=== PATIENT | female | born 1950 | race Caucasian/White ===

== ENCOUNTER → 2017-11-13 | Outpatient (REF) | payer MEDICARE, OTHER ==
[~2017-11-13] MED LIST: ASPIRIN 8181 MG PO; BONIVA150 MG PO; CALCIUM600 M2 PO; DIOVAN160 MG PO; FERROUS SULF325 M1 PO; KLOR-CON 1010 ME1 PO; KLOR-CON M1010 MEQ PO; LASIX 20 MG TAB20 MG PO; LEVOTHYROXIN100 MCG PO; LEVOTHYROXIN88 MC1 PO; LEVOTHYROXINE112 MCG PO; LOVASTATIN20 M1 PO; LOVASTATIN20 MG PO; PROBIOTI2 PO; SM IRON PO; TAMOXIFEN CITRA20 MG PO; THIORIDAZINE PO
[2017-11-13 14:03] LABS: TSH, 3RD GENERATION 0.87 uIU/mL (0.47 - 4.68)
== END | disposition home or self-care (01) ==
LOC: LAB 10:44
PROVIDERS: ATTEND Internal Medicine
DX: E03.9 Hypothyroidism, unspecified (principal)

== ENCOUNTER 2018-08-26 11:29 | Emergency (ER) | payer MEDICARE, OTHER ==
[~2018-08-26] VITALS: Ht 154.9 cm; Wt 75.0 kg
[2018-08-26 11:58] LABS: HEMATOCRIT 32.7 % (37.0-47.0); IMMATURE GRANULOCYTES 0.5 % (0.0-5.0); MEAN CELL VOLUME 87.7 fL CALC (80.0-100.0); MEAN CORPUSCULAR HGB 29.5 pG CALC (26.0-32.0); MEAN CORPUSCULAR HGB CONC 33.6 g/L CALC (32.0-36.0); NEUT# 3.87 thou/uL (2.00-7.15); RED BLOOD COUNT 3.73 mill/uL (4.20-5.60); RED CELL DISTRI WIDTH 13.2 % (11.5-15.5)
[2018-08-26 12:04] LABS: GFR > 60 ML/MIN (>=60 (CALC)); GFR FOR AFR.AMER. > 60 ML/MIN (>=60 (CALC))
[2018-08-26 12:13] LABS: ALBUMIN 4.3 g/dL (3.2-5.0); ALKALINE PHOSPHATASE 70 u/l (38-126); BUN 15 mg/dL (8-23); BUN/CREATININE RATIO 22 (12-20 (CALC)); CHLORIDE 104 mmol/l (95-108); CREATININE 0.7 mg/dL (0.5-1.0); GFR > 60 ML/MIN (>=60 (CALC)); GFR FOR AFR.AMER. > 60 ML/MIN (>=60 (CALC)); POTASSIUM 4.1 mmol/l (3.5-5.1); SODIUM 138 mmol/l (137-146); TOTAL PROTEIN 7.1 g/dL (6.3-8.2)
[2018-08-26 12:18] LABS: ANION GAP 15 (6-22 (CALC)); BILIRUBIN, TOTAL 0.6 mg/dL (0.0-1.4); CARBON DIOXIDE 23 mmol/l (22-30); SGOT/AST 35 u/l (9-36)
[2018-08-26] MEDS ORDERED: LOSARTAN POT50 MG PO (12:48)
[2018-08-26] MEDS ORDERED: LEVOTHYROXIN112 MC1 PO (12:49)
[2018-08-26] MEDS ORDERED: BACTRIM DS1 TAB PO (12:50)
[2018-08-26] MEDS ORDERED: FERRETTS325 MG PO (12:52)
[2018-08-26 12:58] LABS: URINE BILIRUBIN - DIPSTICK NEGATIVE (NEGATIVE); URINE BLOOD DIPSTICK NEGATIVE (NEGATIVE); URINE COLOR YELLOW; URINE GLUCOSE - DIPSTICK NEGATIVE (NEGATIVE); URINE KETONE TRACE mg/dL (NEGATIVE); URINE LEUK ESTERASE NEGATIVE (NEGATIVE); URINE NITRITE - DIPSTICK NEGATIVE (Negative); URINE PROTEIN - DIPSTICK TRACE mg/dL (NEG-TRACE); URINE UROBILINOGEN - DIPSTICK 0.2 E.U./dL (0.2)
[2018-08-26 14:41] VITALS: BP 113/57
== END 2018-08-26 14:41 | disposition short-term general hospital (02) ==
LOC: ED 11:29
PROVIDERS: Emergency Medicine
DX: G40.89 Other seizures (principal); Z98.890 Other specified postprocedural states; I10 Essential (primary) hypertension; Z86.011 Personal history of benign neoplasm of the brain
CPT/HCPCS: J2060; Q9967

== ENCOUNTER 2018-09-03 19:31 | Emergency (ER) | payer MEDICARE, OTHER ==
[~2018-09-03] VITALS: Ht 157.5 cm; Wt 64.5 kg
[~2018-09-03 19:31] MED LIST changes: +BACTRIM DS1 TAB PO; +FERRETTS325 MG PO; +LEVOTHYROXIN112 MC1 PO; +LOSARTAN POT50 MG PO
[2018-09-03] MEDS ORDERED: ALENDRONATE SOD70 MG PO (20:12)
[2018-09-03] MEDS ORDERED: LEVETIRACETAM500 MG PO (20:13)
[2018-09-03] MEDS ORDERED: HYDROXYZ HCL25 MG PO (20:15)
[2018-09-03] MEDS ORDERED: BENADRYL 50MG C50 MG PO (21:15)
[2018-09-03] MEDS ORDERED: MEDDOSEPAK PO (21:15)
[2018-09-03] MEDS ORDERED: PEPCID20 MG PO (21:15)
[2018-09-03] MEDS ORDERED: CIPROFLOXACN500 MG PO (21:19)
[2018-09-03 21:55] VITALS: BP 122/62
== END 2018-09-03 22:15 | disposition home or self-care (01) ==
LOC: ED 19:31
DX: L27.1 Localized skin eruption due to drugs and medicaments taken internally (principal); I10 Essential (primary) hypertension; T37.0X5A Adverse effect of sulfonamides, initial encounter

== ENCOUNTER 2018-11-24 12:52 | Inpatient (IN) | payer MEDICARE, OTHER ==
[~2018-11-24] VITALS: Ht 157.5 cm; Wt 56.0 kg
[~2018-11-24 12:52] MED LIST changes: +ALENDRONATE SOD70 MG PO; +BENADRYL 50MG C50 MG PO; +CIPROFLOXACN500 MG PO; +HYDROXYZ HCL25 MG PO; +LEVETIRACETAM500 MG PO; +MEDDOSEPAK PO; +PEPCID20 MG PO
[2018-11-24 13:46] LABS: HEMOGLOBIN 11.1 g/dl (12.0-16.0); IMMATURE GRANULOCYTES 0.2 % (0.0-5.0); MEAN CELL VOLUME 89.7 fL CALC (80.0-100.0); MEAN CORPUSCULAR HGB 29.3 pG CALC (26.0-32.0); MEAN CORPUSCULAR HGB CONC 32.6 g/L CALC (32.0-36.0); NEUT# 4.29 thou/uL (2.00-7.15); RED BLOOD COUNT 3.79 mill/uL (4.20-5.60); RED CELL DISTRI WIDTH 12.9 % (11.5-15.5)
[2018-11-24 14:01] LABS: ALBUMIN 4.9 g/dL (3.2-5.0); ALKALINE PHOSPHATASE 81 u/l (38-126); ANION GAP 14 (6-22 (CALC)); BILIRUBIN, TOTAL 0.6 mg/dL (0.0-1.4); BUN 17 mg/dL (8-23); BUN/CREATININE RATIO 23 (12-20 (CALC)); CHLORIDE 103 mmol/l (95-108); CREATININE 0.7 mg/dL (0.5-1.0); GFR > 60 ML/MIN (>=60 (CALC)); GFR FOR AFR.AMER. > 60 ML/MIN (>=60 (CALC)); POTASSIUM 3.9 mmol/l (3.5-5.1); SGOT/AST 25 u/l (9-36); SODIUM 141 mmol/l (137-146); TOTAL PROTEIN 7.5 g/dL (6.3-8.2)
[2018-11-24 14:04] LABS: CARBON DIOXIDE 28 mmol/l (22-30)
[2018-11-24 16:10] LABS: URINE BILIRUBIN - DIPSTICK NEGATIVE (NEGATIVE); URINE BLOOD DIPSTICK TRACE-INTACT (NEGATIVE); URINE COLOR YELLOW; URINE GLUCOSE - DIPSTICK NEGATIVE (NEGATIVE); URINE KETONE NEGATIVE (NEGATIVE); URINE PH 6.5 (4.5-8.0); URINE PROTEIN - DIPSTICK NEGATIVE (NEG-TRACE); URINE UROBILINOGEN - DIPSTICK 0.2 E.U./dL (0.2)
[2018-11-24 16:12] LABS: URINE LEUK ESTERASE LARGE (NEGATIVE); URINE NITRITE - DIPSTICK POSITIVE (Negative)
[2018-11-24 16:19] LABS: URINE BACTERIA FEW hpf; URINE SQUAMOUS EPITHELIAL CELL FEW EPI/hpf (0-FEW); URINE WBC 50-100 WBC/hpf (0-5)
[2018-11-24 16:46] LABS: BARBITURATES NEGATIVE (NEGATIVE); COCAINE NEGATIVE (NEGATIVE); METHADONE NEGATIVE (NEGATIVE); OXCYCODONE NEGATIVE (NEGATIVE); TETRAHYDROCANNABIONOL NEGATIVE (NEGATIVE); TRICYLIC ANTIDEPRESSANTS NEGATIVE (NEGATIVE)
[2018-11-24 20:41] VITALS: BP 139/66
[2018-11-24 23:35] VITALS: BP 121/62
[2018-11-25 04:30] VITALS: BP 86/48
[2018-11-25 04:51] VITALS: BP 108/63
[2018-11-25 07:00] VITALS: BP 106/51
[2018-11-25 12:00] VITALS: BP 119/69
[2018-11-25 16:00] VITALS: BP 123/56
[2018-11-25 19:46] VITALS: BP 119/57
[2018-11-26] VITALS (10 sets, daily range): BP systolic 104–137; BP diastolic 56–76
[2018-11-27] VITALS (11 sets, daily range): BP systolic 106–152; BP diastolic 49–81
[2018-11-27 05:23] LABS: HEMATOCRIT 29.4 % (37.0-47.0); HEMOGLOBIN 9.6 g/dl (12.0-16.0); MEAN CELL VOLUME 89.1 fL CALC (80.0-100.0); MEAN CORPUSCULAR HGB 29.1 pG CALC (26.0-32.0); MEAN CORPUSCULAR HGB CONC 32.7 g/L CALC (32.0-36.0); RED BLOOD COUNT 3.3 mill/uL (4.20-5.60)
[2018-11-27 05:39] LABS: ANION GAP 9 (6-22 (CALC)); BUN 12 mg/dL (8-23); BUN/CREATININE RATIO 19 (12-20 (CALC)); CARBON DIOXIDE 24 mmol/l (22-30); CHLORIDE 111 mmol/l (95-108); CREATININE 0.6 mg/dL (0.5-1.0); GFR > 60 ML/MIN (>=60 (CALC)); GFR FOR AFR.AMER. > 60 ML/MIN (>=60 (CALC)); POTASSIUM 4.1 mmol/l (3.5-5.1); SODIUM 140 mmol/l (137-146)
[2018-11-28] VITALS: BP 135/64
[2018-11-28 02:00] VITALS: BP 119/66
[2018-11-28 04:00] VITALS: BP 140/68
[2018-11-28 06:00] VITALS: BP 89/47
[2018-11-28 08:10] VITALS: BP 116/62
[2018-11-28] MEDS ORDERED: KEFLEX500 MG PO (11:01)
[2018-11-28 11:57] VITALS: BP 133/65
== END 2018-11-28 12:55 | DRG 885 ==
LOC: ED 12:52 → ED-I 16:24 → ED 16:39 → ICU 16:40
PROVIDERS: Family Medicine; ADMIT Internal Medicine; ATTEND Internal Medicine
DX: F20.0 Paranoid schizophrenia (principal); I10 Essential (primary) hypertension; E03.9 Hypothyroidism, unspecified; E11.9 Type 2 diabetes mellitus without complications; G40.909 Epilepsy, unspecified, not intractable, without status epilepticus; B96.20 Unspecified Escherichia coli [E. coli] as the cause of diseases classified elsewhere; Z86.011 Personal history of benign neoplasm of the brain
CPT/HCPCS: J1650; J1953; S0166

== ENCOUNTER 2019-06-06 | Emergency (ER) | payer MEDICARE, OTHER ==
[~2019-06-06] MED LIST changes: +KEFLEX500 MG PO
[2019-06-06] MEDS ORDERED: IRON45 MG PO (23:04)
[2019-06-06] MEDS ORDERED: LEXAPRO10 MG PO (23:05)
[2019-06-06] MEDS ORDERED: NAMENDA10 MG PO (23:05)
[2019-06-06] MEDS ORDERED: ZYPREXA ZYDI5 MG PO (23:06)
[2019-06-06 23:24] LABS: HEMATOCRIT 33.1 % (37.0-47.0); IMMATURE GRANULOCYTES 0.3 % (0.0-5.0); MEAN CELL VOLUME 90.7 fL CALC (80.0-100.0); MEAN CORPUSCULAR HGB 30.1 pG CALC (26.0-32.0); MEAN CORPUSCULAR HGB CONC 33.2 g/dL CAL (32.0-36.0); NEUT# 2.18 thou/uL (2.00-7.15); RED BLOOD COUNT 3.65 mill/uL (4.20-5.60); RED CELL DISTRI WIDTH 13.2 % (11.5-15.5)
[2019-06-06 23:39] LABS: ACT PARTIAL THROMBO TIME 26.9 SECONDS (20.0-32.5); ALBUMIN 4.3 g/dL (3.2-5.0); ALKALINE PHOSPHATASE 65 u/l (38-126); ANION GAP 9 (6-22 (CALC)); BUN 22 mg/dL (8-23); BUN/CREATININE RATIO 42 (12-20 (CALC)); CARBON DIOXIDE 34 mmol/l (22-30); CHLORIDE 105 mmol/l (95-108); CREATININE 0.5 mg/dL (0.5-1.0); GFR > 60 ML/MIN (>=60 (CALC)); GFR FOR AFR.AMER. > 60 ML/MIN (>=60 (CALC)); SODIUM 144 mmol/l (137-146); TOTAL PROTEIN 7.2 g/dL (6.3-8.2)
[2019-06-06 23:40] LABS: BILIRUBIN, TOTAL 0.2 mg/dL (0.0-1.4); SGOT/AST 47 u/l (9-36)
[2019-06-07 00:09] LABS: TSH, 3RD GENERATION 0.13 uIU/mL (0.47 - 4.68)
[2019-06-07 00:09] LABS: BARBITURATES NEGATIVE (NEGATIVE); COCAINE NEGATIVE (NEGATIVE); METHADONE NEGATIVE (NEGATIVE); OXCYCODONE NEGATIVE (NEGATIVE); TETRAHYDROCANNABIONOL NEGATIVE (NEGATIVE); TRICYLIC ANTIDEPRESSANTS NEGATIVE (NEGATIVE)
[2019-06-07 00:16] LABS: URINE BILIRUBIN - DIPSTICK NEGATIVE (NEGATIVE); URINE BLOOD DIPSTICK NEGATIVE (NEGATIVE); URINE COLOR YELLOW; URINE GLUCOSE - DIPSTICK NEGATIVE (NEGATIVE); URINE KETONE NEGATIVE (NEGATIVE); URINE LEUK ESTERASE NEGATIVE (NEGATIVE); URINE NITRITE - DIPSTICK NEGATIVE (Negative); URINE PROTEIN - DIPSTICK NEGATIVE (NEG-TRACE); URINE SPECIFIC GRAVITY >=1.030; URINE UROBILINOGEN - DIPSTICK 0.2 E.U./dL (0.2)
== END 2019-06-07 00:52 | disposition home or self-care (01) ==
PROVIDERS: Family Medicine
DX: R47.1 Dysarthria and anarthria (principal); E03.9 Hypothyroidism, unspecified; G40.909 Epilepsy, unspecified, not intractable, without status epilepticus; I10 Essential (primary) hypertension; E11.9 Type 2 diabetes mellitus without complications; F03.90 Unspecified dementia, unspecified severity, without behavioral disturbance, psychotic disturbance, mood disturbance, and anxiety; F31.9 Bipolar disorder, unspecified

== ENCOUNTER 2019-06-10 | Emergency (ER) | payer MEDICARE, OTHER ==
[~2019-06-10] MED LIST changes: +IRON45 MG PO; +LEXAPRO10 MG PO; +NAMENDA10 MG PO; +ZYPREXA ZYDI5 MG PO
[2019-06-10] MEDS ORDERED: PSYLLIUM FIBE0.52 GM PO (21:03)
[2019-06-10 21:19] LABS: HEMOGLOBIN 10.1 g/dl (12.0-16.0); IMMATURE GRANULOCYTES 0.7 % (0.0-5.0); MEAN CELL VOLUME 90.9 fL CALC (80.0-100.0); MEAN CORPUSCULAR HGB 29.6 pG CALC (26.0-32.0); MEAN CORPUSCULAR HGB CONC 32.6 g/dL CAL (32.0-36.0); NEUT# 2.17 thou/uL (2.00-7.15); RED BLOOD COUNT 3.41 mill/uL (4.20-5.60); RED CELL DISTRI WIDTH 13.5 % (11.5-15.5)
[2019-06-10 21:36] LABS: ALKALINE PHOSPHATASE 63 u/l (38-126); ANION GAP 8 (6-22 (CALC)); BUN 23 mg/dL (8-23); BUN/CREATININE RATIO 40 (12-20 (CALC)); CARBON DIOXIDE 35 mmol/l (22-30); CHLORIDE 104 mmol/l (95-108); CREATININE 0.6 mg/dL (0.5-1.0); GFR > 60 ML/MIN (>=60 (CALC)); GFR FOR AFR.AMER. > 60 ML/MIN (>=60 (CALC)); POTASSIUM 4.2 mmol/l (3.5-5.1); SGOT/AST 50 u/l (9-36); SODIUM 143 mmol/l (137-146); TOTAL PROTEIN 6.8 g/dL (6.3-8.2)
[2019-06-10 21:41] LABS: BILIRUBIN, TOTAL 0.3 mg/dL (0.0-1.4)
[2019-06-10 21:48] LABS: MYOGLOBIN 75 ng/mL (0 - 62)
[2019-06-10 22:17] LABS: URINE BILIRUBIN - DIPSTICK NEGATIVE (NEGATIVE); URINE BLOOD DIPSTICK NEGATIVE (NEGATIVE); URINE COLOR YELLOW; URINE GLUCOSE - DIPSTICK NEGATIVE (NEGATIVE); URINE KETONE NEGATIVE (NEGATIVE); URINE LEUK ESTERASE TRACE (NEGATIVE); URINE NITRITE - DIPSTICK NEGATIVE (Negative); URINE PH 5.5 (4.5-8.0); URINE PROTEIN - DIPSTICK TRACE mg/dL (NEG-TRACE); URINE SPECIFIC GRAVITY >=1.030; URINE UROBILINOGEN - DIPSTICK 0.2 E.U./dL (0.2)
== END 2019-06-10 22:55 | disposition home or self-care (01) ==
PROVIDERS: Emergency Medicine
DX: G40.409 Other generalized epilepsy and epileptic syndromes, not intractable, without status epilepticus (principal); E11.9 Type 2 diabetes mellitus without complications; I10 Essential (primary) hypertension; F31.9 Bipolar disorder, unspecified; F03.90 Unspecified dementia, unspecified severity, without behavioral disturbance, psychotic disturbance, mood disturbance, and anxiety; Z87.898 Personal history of other specified conditions

== ENCOUNTER 2020-06-15 12:00 | Inpatient (IN) | payer MEDICARE, OTHER ==
[~2020-06-15] VITALS: Ht 154.9 cm; Wt 83.8 kg
[~2020-06-15 12:00] MED LIST changes: +PSYLLIUM FIBE0.52 GM PO
--- NOTE | 2020-06-15 12:10 | NUR ---
PT TO ROOM VIA WHEELCHAIR. BEDSIDE TRIAGE COMPLETED
--- NOTE | 2020-06-15 12:57 | NUR ---
SISTER REMAINS BEDSIDE
[2020-06-15 13:31] LABS: HEMOGLOBIN 12.5 g/dl (12.0-16.0); IMMATURE GRANULOCYTES 0.5 % (0.0-5.0); MEAN CELL VOLUME 87.1 fL CALC (80.0-100.0); MEAN CORPUSCULAR HGB 29.4 pG CALC (26.0-32.0); MEAN CORPUSCULAR HGB CONC 33.8 g/dL CAL (32.0-36.0); NEUT# 6.59 thou/uL (2.00-7.15); RED BLOOD COUNT 4.25 mill/uL (4.20-5.60); RED CELL DISTRI WIDTH 12.3 % (11.5-15.5)
[2020-06-15 13:54] LABS: ALBUMIN 4.9 g/dL (3.2-5.0); BILIRUBIN, TOTAL 0.8 mg/dL (0.0-1.4); CREATININE 1.3 mg/dL (0.5-1.0); TOTAL PROTEIN 8.4 g/dL (6.3-8.2)
[2020-06-15 13:57] LABS: ACT PARTIAL THROMBO TIME 19.8 SECONDS (20.0-32.5); PROTHROMBIN TIME 10.1 SECONDS (9.0-12.5)
[2020-06-15 14:01] LABS: POTASSIUM 1.9 mmol/l (3.5-5.1)
--- NOTE | 2020-06-15 14:34 | NUR ---
PATEINT RESTING EYES CLOSED, REMAINS BEDSIDE
[2020-06-15] MEDS ORDERED: LASIX 40 MG TAB40 MG PO (14:51)
[2020-06-15] MEDS ORDERED: DEPAKOTE SPR125 MG PO (14:55)
[2020-06-15] MEDS ORDERED: VIMPAT100 MG PO (15:38)
[2020-06-15] MEDS ORDERED: LEVOTHYROXIN100 MCG PO (15:39)
[2020-06-15] MEDS ORDERED: HYDROCHLOROT25 MG PO (15:44)
[2020-06-15] MEDS ORDERED: ATORVASTATIN CA20 MG PO (15:44)
[2020-06-15] MEDS ORDERED: LOVASTATIN20 M1 PO (15:45)
[2020-06-15] MEDS ORDERED: POTASSIUM CHLORI10 % PO (15:45)
--- NOTE | 2020-06-15 16:00 | NUR ---
RETURN PHONE CALL TO ESTEVAN HUYNH FOR PATIENT REPORT, REPORT GIVEN PATIENT HELD IN ED DUE TO CODE IN PROGRESS AND NEED FOR SIGNED ADMISSION
--- NOTE | 2020-06-15 16:20 | NUR ---
PATIENT BELONGING SHEET COMPLETED/MEDICATIONS FROM PHARMACY BROUGHT TO ICU WITH PATIENT
--- NOTE | 2020-06-15 16:30 | NUR ---
PT RESTING QUIETLY ON BED, SLIGHTLY MENTALLY CHALLANGED DUE TO BRAIN SURGERY AND DEMENTIA. PT LIVES IN [place], DENIES ANY COMPLAINTS WENT IN FOR ROUTINE BLOOD WORK AND WAS CALLED TO COME IN FOR LOW POTASSIUM. PT WAS RECENTLY PUT ON LASIX FOR UNKNOWN REASON. ALERT/ORIENTED TO SELF AND PLACE BUT NOT TIME. SISTER STATES THIS IS NORMAL.
[2020-06-15 16:53] VITALS: BP 169/78
--- NOTE | 2020-06-15 18:14 | NUR ---
PT RESTING QUIETLY ON BED, WATCHING TV. NO COMPLAINTS AT THIS TIME
[2020-06-15 18:35] LABS: CREATININE 1.1 mg/dL (0.5-1.0)
[2020-06-15 18:45] LABS: POTASSIUM 1.9 mmol/l (3.5-5.1)
[2020-06-15 19:00] VITALS: BP 127/71
--- NOTE | 2020-06-15 19:30 | NUR ---
REPORT GIVEN BY CRISTIANO. PATIENT RESTING IN BED WITH TV ON. RESP EVEN AND UNLABORED. NO S/S OF DISTRESS NOTED. FALL AND SAFTEY PRECAUTIONS IN PLACE. IV INFUSING POTASSUIM IN NS. PATIENT INFROEMD TO CALL WITH ANY QUESTIONS OR CONCERNS.
--- NOTE | 2020-06-15 19:58 | NUR ---
UPDATED ON PATIENT'S LABWORK, K 1.9. NEW ORDERS GIVEN FOR PO K AND IV K. NEW ORDERS GIVEN FOR MAG TO BE DRAWN FOR LABWORK.
[2020-06-15 20:00] VITALS: BP 132/65
--- NOTE | 2020-06-15 20:22 | NUR ---
FRESH WATER PROVIDED, ORANGE JUICE PROVIDED PER PT'S REQUEST, PT DENIES FURTHER NEEDS AT THIS TIME.
[2020-06-15 21:00] VITALS: BP 123/73
[2020-06-15 22:00] VITALS: BP 132/78
--- NOTE | 2020-06-15 22:00 | NUR ---
PATIENT RESTING IN BED WITH EYES CLOSED. RESP EVEN AND UNLABORED. NO S/S OF DISTRESS NOTED. FALL AND SAFTEY PRECAUTIONS IN PLACE.
[2020-06-15 23:00] VITALS: BP 91/60; BP 98/67
[2020-06-16] VITALS (16 sets, daily range): BP systolic 77–124; BP diastolic 45–72
--- NOTE | 2020-06-16 | NUR ---
PATIENT RESTING IN BED WITH EYES CLOSED. RESP EVEN AND UNLABORED. NO S/S OF DISTRESS NOTED.
--- NOTE | 2020-06-16 04:09 | NUR ---
LABTECH IN ROOM DRAWING MORNING LAB WORK
[2020-06-16 06:07] LABS: HEMOGLOBIN 11.1 g/dl (12.0-16.0); MEAN CELL VOLUME 88.8 fL CALC (80.0-100.0); MEAN CORPUSCULAR HGB CONC 32.6 g/dL CAL (32.0-36.0); RED BLOOD COUNT 3.83 mill/uL (4.20-5.60); RED CELL DISTRI WIDTH 12.4 % (11.5-15.5)
[2020-06-16 06:22] LABS: BUN 42 mg/dL (8-23); BUN/CREATININE RATIO 43 (12-20 (CALC)); CALCULATED LDLCHOLESTEROL 66 mg/dL (62-129 (CALC)); CHOLESTEROL HDL RATIO 2.2 (<4.4 (CALC)); GFR 55 ML/MIN (>=60 (CALC)); GFR FOR AFR.AMER. > 60 ML/MIN (>=60 (CALC)); HDL CHOLESTEROL 66 mg/dL (>=40); MAGNESIUM 2.5 mg/dL (1.6-2.3); SODIUM 134 mmol/l (137-146); TOTAL CHOLESTEROL 148 mg/dl (0-199); TOTAL TRIGLYCERIDES 81 mg/dl (30-149); VLDL CHOLESTROL 16 mg/dl (1-41 (CALC))
[2020-06-16 06:30] LABS: ANION GAP 11 (6-22 (CALC)); CHLORIDE 85 mmol/l (95-108); POTASSIUM 2.4 mmol/l (3.5-5.1)
[2020-06-16 06:31] LABS: CARBON DIOXIDE 40 mmol/l (22-30)
--- NOTE | 2020-06-16 06:37 | NUR ---
NEW ORDERS GIVEN BY FOR LOW K. KCL 80MEQ PO X 1 DOSE AND KCL 20 MEQ/100 ML IV X 1 DOSE.
--- NOTE | 2020-06-16 07:24 | NUR ---
PT REPORT RECEIVED FROM ACID EXTRACTOR, PT RESTING QUIETLY ON BED, NO COMPLAINTS AT THIS TIME, IV FLUIDS INFUSING. PT ALERT/ORIENTED X2. VITAL SIGNS STABLE.
--- NOTE | 2020-06-16 09:48 | NUR ---
PT SITTING UP IN BED WATCHING TV, NO COMPLAINTS AT THIS TIME. ADVISED OF PLAN OF CARE.
--- NOTE | 2020-06-16 11:44 | NUR ---
PT THERAPIST AT BEDSIDE. PT SAT UP AND WALKED IN ROOM
--- NOTE | 2020-06-16 15:42 | NUR ---
PT RESTING QUIETLY ON BED WATCHING TV, REMAINS PAIN FREE, COMPLAINT FREE, VITAL SIGNS STABLE
--- NOTE | 2020-06-16 17:45 | NUR ---
PT RESTING QUIETLY, DENIES ANY COMPLAINTS, WATCHING TV, VITAL SIGNS STABLE.
--- NOTE | 2020-06-16 19:10 | NUR ---
REPORT GIVEN BY CRISTIANO. PATIENT INBED WATCHING TV. RESP EVEN AND UNLABORED. IV INFUFING FLUIDS. NO S/S OF DISTRESS NOTED. PLAN OF CARE DISCUSSED. PATIENT INFORMED TO CALL WITH ANY QUESTIONS OR CONCERNS
--- NOTE | 2020-06-16 20:45 | NUR ---
PM MEDICATION GIVEN PER MD ORDERS. FALL AND SAFTEY PRECAUTIONS IN PLACE.
[2020-06-17] VITALS (9 sets, daily range): BP systolic 74–133; BP diastolic 40–59
--- NOTE | 2020-06-17 01:02 | NUR ---
PATIENT RESTING WITH EYES CLOSED. RESP EVEN AND UNLABORED. NO S/S OF DISTRESS NOTED. FALL AND SAFTEY PRECAUTIONS IN PLACE.
[2020-06-17 05:56] LABS: BUN 27 mg/dL (8-23); BUN/CREATININE RATIO 38 (12-20 (CALC)); CREATININE 0.7 mg/dL (0.5-1.0); GFR > 60 ML/MIN (>=60 (CALC)); GFR FOR AFR.AMER. > 60 ML/MIN (>=60 (CALC)); MAGNESIUM 2.3 mg/dL (1.6-2.3); SODIUM 138 mmol/l (137-146)
[2020-06-17 05:57] LABS: ANION GAP 10 (6-22 (CALC)); CARBON DIOXIDE 31 mmol/l (22-30); CHLORIDE 101 mmol/l (95-108); POTASSIUM 3.5 mmol/l (3.5-5.1)
--- NOTE | 2020-06-17 06:00 | NUR ---
PATIENT RESTING IN BED WITH EYES CLOSED. RESP EVEN AND UNLABORED. NO S/S OF DISTRESS NOTED.
--- NOTE | 2020-06-17 07:20 | NUR ---
pt resting in bed with eyes closed; easily aroused; pt offers no complaints; assessment completed at this time; pt alert and oriented to person, place and year; denies pain; no n/v noted; resp even and unlabored; lungs clear; skin color wnl; ra; hr reg; strong pulses; no edema noted; sr on monitor; abd soft/ distended with bs present; no bm noted per comic writer; no urine to inspect at this time; #20 patent to lac with ivf infusing without complication; no redness or edema noted at site; plan of care/ am meds explained; call light within reach; will continue to monitor
--- NOTE | 2020-06-17 08:00 | NUR ---
awake in bed; no apparent distress noted; sr on monitor; call light within reach; will continue to monitor
--- NOTE | 2020-06-17 08:50 | NUR ---
LARGE BM NOTED. PT ASSITED TO TOM CARE AND WASHING UP. NEW LINEN PROVIDED. #22G IN RAC STARTED. #20G IN LAC LEAKING, REMOVED WITH CATHATERS TILL INTACT. PT TOLERATED WELL.
--- NOTE | 2020-06-17 09:00 | NUR ---
Dr Parker present at bedside to assess pt and discuss plan of care
--- NOTE | 2020-06-17 10:00 | NUR ---
awake in bed; sr on monitor; no apparent distress noted; iv saline locked; call light within reach; bed alarm set for pt safety; call light within reach
--- NOTE | 2020-06-17 10:21 | NUR ---
report called to Shira Jaramillo LPN; pt to transfer to med surg tele [id number]
--- NOTE | 2020-06-17 10:35 | NUR ---
sister Agustina Barrera called per database report writer; database report writer request for Vimpat to be brought in d/t non formulary medication;
--- NOTE | 2020-06-17 10:36 | NUR ---
pt transferred to med surg tele [phone] in stable condition via wc accompanied by Leeann Sow LPN; belongings sent with pt
--- NOTE | 2020-06-17 10:49 | NUR ---
PT ARRIVED VIA WC WITH STAFF, IV AND TELE MONITOR IN PLACE.
--- NOTE | 2020-06-17 12:05 | NUR ---
PT IS SITTING IN BED WITH NO DISTRESS NOTED. EATING LUNCH. CONTINUE TO OBSERVE AND MONITOR.
--- NOTE | 2020-06-17 14:20 | NUR ---
FAMILY BROUGHT IN HER MEDICATION
--- NOTE | 2020-06-17 19:25 | NUR ---
AWNING MAKER AND INSTALLER IN WITH PT WHEN I ENTERED THE ROOM. HE WAS ASSISTING THE PT TO BS. SHE IS STEADY ON HER FEET WITH STANDBY ASSISTANCE. PT WAS ASSISTED BACK TO THE BED WHERE SHE WAS POSITIONED FOR COMFORT AND ASSISTED FINDING TV CHANNEL. PT ASSESSMENT ALSO COMPLETED AT THIS TIME. PT DENIES PAIN/N/V OR ANY OTHER DISTRESSES AT THIS TIME. CALL LIGHT IN HAND AND PT VERBALIZED AND DEMONSTRATED IT'S USAGE FOR ASSISTANCE WHEN NEEDED.
--- NOTE | 2020-06-17 21:27 | NUR ---
PT MEDICATED ORDERS PROVIDE. NO S/O DISTRESS NOTED AT THIS TIME. BED WRAPPED AT THIS TIME FOR SEIZURE PRECAUTION/HISTORY. OFFERED SNACK TO PT/ICECREAM PROVIDED PER REQUEST.
[2020-06-18] VITALS: BP 90/57
--- NOTE | 2020-06-18 00:03 | NUR ---
IVF REPLENISHED AT THIS TIME. PT IS SLEEPING, PHYTOPATHOLOGIST IN TO OBTAIN V/S ALSO AT THIS TIME. NO S/O DISTRESS.
[2020-06-18 00:30] VITALS: BP 96/56
[2020-06-18 03:40] VITALS: BP 92/55
--- NOTE | 2020-06-18 04:24 | NUR ---
PT AWAKE FOR LAB IN THE ROOM. SHE DENIES ANY NEEDS OR DISTRESSES AT THIS TIME. CALL LIGHT IS AT BEDSIDE. IVF RUNNING TO [facility]/SITE APPEARS HEALTHY.
[2020-06-18 04:53] LABS: HEMATOCRIT 30.7 % (37.0-47.0); HEMOGLOBIN 9.8 g/dl (12.0-16.0); MEAN CELL VOLUME 91.9 fL CALC (80.0-100.0); MEAN CORPUSCULAR HGB 29.3 pG CALC (26.0-32.0); MEAN CORPUSCULAR HGB CONC 31.9 g/dL CAL (32.0-36.0); RED BLOOD COUNT 3.34 mill/uL (4.20-5.60)
[2020-06-18 05:17] LABS: ANION GAP 6 (6-22 (CALC)); BUN 22 mg/dL (8-23); BUN/CREATININE RATIO 28 (12-20 (CALC)); CARBON DIOXIDE 31 mmol/l (22-30); CHLORIDE 105 mmol/l (95-108); CREATININE 0.8 mg/dL (0.5-1.0); GFR > 60 ML/MIN (>=60 (CALC)); GFR FOR AFR.AMER. > 60 ML/MIN (>=60 (CALC)); MAGNESIUM 2.3 mg/dL (1.6-2.3); POTASSIUM 3.5 mmol/l (3.5-5.1); SODIUM 140 mmol/l (137-146)
--- NOTE | 2020-06-18 06:36 | NUR ---
ASSISTED PT TO BSC AND BACK TO BED.
[2020-06-18 07:10] VITALS: BP 100/63
--- NOTE | 2020-06-18 07:10 | NUR ---
PT LAYING IN BED. A&O X3, ABLE TO STATE CORRECT NAME;;LOCATION AND YEAR. PT DENIES ANY PAIN AT THIS TIME. PT ABLE TO FOLLOW SIMPLE COMMANDS WITH NO DIFFICULTY. CLEAR BREATH SOUNDS UPON AUSCULTATION. #22 RAC INFUSING NS WITH 20 MEQ OF K PER MAR ORDERS, IV HEALTHY AND PATENT. TRACE EDEMA NOTED TO BILATERAL ANKLES. SINGLE STROKE PREFORMER IN PLACE. ASSESSMENT COMPLETED, VSS;. DISCUSSED POC. CALL LIGHT WITHIN REACH. BED ALARM IN PLACE FOR SAFETY.
[2020-06-18 10:08] VITALS: BP 113/66
--- NOTE | 2020-06-18 12:12 | NUR ---
Discharge instructions given. Patient verbalizes understanding of same; D/C instructions also given to Sister Agustina; she also veralized understanding. Discharged in stable condition via Wheelchair to [facility] with the assistance of this card writer hand. All belongings sent with pt along with home medications including Vimpat that was stocked in [facility]; witnessed by Josue Headley.
== END 2020-06-18 12:22 | disposition home or self-care (01) | DRG 641 ==
LOC: ED 12:00 → ED-I 14:25 → ED 16:17 → ICU 16:18 → MS2 06-17 10:39
PROVIDERS: Nurse Practitioner; ADMIT Internal Medicine; ATTEND Internal Medicine
DX: E87.6 Hypokalemia (principal); T50.2X5A Adverse effect of carbonic-anhydrase inhibitors, benzothiadiazides and other diuretics, initial encounter; I10 Essential (primary) hypertension; E11.9 Type 2 diabetes mellitus without complications; F03.90 Unspecified dementia, unspecified severity, without behavioral disturbance, psychotic disturbance, mood disturbance, and anxiety; E03.9 Hypothyroidism, unspecified; E78.5 Hyperlipidemia, unspecified; G40.909 Epilepsy, unspecified, not intractable, without status epilepticus; F20.9 Schizophrenia, unspecified; F31.9 Bipolar disorder, unspecified; Z20.822 Contact with and (suspected) exposure to COVID-19; R60.0 Localized edema; Z79.899 Other long term (current) drug therapy; E78.00 Pure hypercholesterolemia, unspecified; D50.9 Iron deficiency anemia, unspecified
CPT/HCPCS: J1650

== ENCOUNTER 2020-12-02 16:36 | Emergency (ER) | payer MEDICARE, OTHER ==
[~2020-12-02] VITALS: Ht 154.9 cm; Wt 80.0 kg
[~2020-12-02 16:36] MED LIST changes: +ATORVASTATIN CA20 MG PO; +DEPAKOTE SPR125 MG PO; +HYDROCHLOROT25 MG PO; +LASIX 40 MG TAB40 MG PO; +POTASSIUM CHLORI10 % PO; +VIMPAT100 MG PO
[2020-12-02] MEDS ORDERED: ALENDRONATE SOD70 MG PO (18:24)
[2020-12-02] MEDS ORDERED: DIVALPROEX125 M1 PO (18:25)
[2020-12-02] MEDS ORDERED: LASIX 40 MG TAB40 MG PO (18:26)
[2020-12-02 19:25] VITALS: BP 110/56
== END 2020-12-02 19:25 | disposition home or self-care (01) ==
LOC: ED 16:36
PROC: 0HQKXZZ Repair Right Lower Leg Skin, External Approach (ICD-10-PCS; principal; 2020-12-02)
DX: S81.011A Laceration without foreign body, right knee, initial encounter (principal); I10 Essential (primary) hypertension; F31.9 Bipolar disorder, unspecified; F03.90 Unspecified dementia, unspecified severity, without behavioral disturbance, psychotic disturbance, mood disturbance, and anxiety; W01.0XXA Fall on same level from slipping, tripping and stumbling without subsequent striking against object, initial encounter; Y92.098 Other place in other non-institutional residence as the place of occurrence of the external cause

== ENCOUNTER 2020-12-30 19:14 | Emergency (ER) | payer MEDICARE, OTHER ==
[~2020-12-30] VITALS: Ht 154.9 cm; Wt 85.0 kg
[~2020-12-30 19:14] MED LIST changes: +DIVALPROEX125 M1 PO
[2020-12-30 21:21] VITALS: BP 120/73
== END 2020-12-30 21:25 | disposition home or self-care (01) ==
LOC: ED 19:14
PROC: 0HQ1XZZ Repair Face Skin, External Approach (ICD-10-PCS; principal; 2020-12-30)
DX: S01.111A Laceration without foreign body of right eyelid and periocular area, initial encounter (principal); I10 Essential (primary) hypertension; F31.9 Bipolar disorder, unspecified; F03.90 Unspecified dementia, unspecified severity, without behavioral disturbance, psychotic disturbance, mood disturbance, and anxiety; W18.30XA Fall on same level, unspecified, initial encounter; Y93.89 Activity, other specified; Y92.009 Unspecified place in unspecified non-institutional (private) residence as the place of occurrence of the external cause

== ENCOUNTER 2021-03-16 14:58 | Emergency (ER) | payer MEDICARE, OTHER ==
[~2021-03-16] VITALS: Ht 154.9 cm; Wt 85.0 kg
[2021-03-16 17:26] LABS: HEMATOCRIT 35.5 % (37.0-47.0); HEMOGLOBIN 11.3 g/dl (12.0-16.0); IMMATURE GRANULOCYTES 0.3 % (0.0-5.0); MEAN CELL VOLUME 96.5 fL CALC (80.0-100.0); MEAN CORPUSCULAR HGB 30.7 pG CALC (26.0-32.0); MEAN CORPUSCULAR HGB CONC 31.8 g/dL CAL (32.0-36.0); NEUT# 3.68 thou/uL (2.00-7.15); RED BLOOD COUNT 3.68 mill/uL (4.20-5.60); RED CELL DISTRI WIDTH 12.2 % (11.5-15.5)
[2021-03-16 17:42] LABS: ALBUMIN 4.2 g/dL (3.2-5.0); BILIRUBIN, TOTAL 0.3 mg/dL (0.0-1.4); CREATININE 1.1 mg/dL (0.5-1.0); POTASSIUM 3.9 mmol/l (3.5-5.1); TOTAL PROTEIN 7.1 g/dL (6.3-8.2)
[2021-03-16] MEDS ORDERED: BACTRIM DS1 TAB PO (20:04)
[2021-03-16 20:20] VITALS: BP 130/63
== END 2021-03-16 20:26 | disposition home or self-care (01) ==
LOC: ED 14:58
PROVIDERS: Family Medicine
PROC: 0HDRXZZ Extraction of Toe Nail, External Approach (ICD-10-PCS; principal; 2021-03-16)
DX: S91.205A Unspecified open wound of left lesser toe(s) with damage to nail, initial encounter (principal); S00.83XA Contusion of other part of head, initial encounter; I10 Essential (primary) hypertension; F31.9 Bipolar disorder, unspecified; F03.90 Unspecified dementia, unspecified severity, without behavioral disturbance, psychotic disturbance, mood disturbance, and anxiety; W01.0XXA Fall on same level from slipping, tripping and stumbling without subsequent striking against object, initial encounter; Y92.531 Health care provider office as the place of occurrence of the external cause

== ENCOUNTER 2021-07-26 16:05 | Emergency (ER) | payer MEDICARE, OTHER ==
[2021-07-26] VITALS (15 sets, daily range): BP systolic 78–127; BP diastolic 40–74
[~2021-07-26] VITALS: Ht 154.9 cm; Wt 90.0 kg
[2021-07-26 17:03] LABS: HEMOGLOBIN 11.2 g/dl (12.0-16.0); IMMATURE GRANULOCYTES 0.2 % (0.0-5.0); MEAN CELL VOLUME 93.6 fL CALC (80.0-100.0); MEAN CORPUSCULAR HGB 29.9 pG CALC (26.0-32.0); NEUT# 2.22 thou/uL (2.00-7.15); RED BLOOD COUNT 3.74 mill/uL (4.20-5.60); RED CELL DISTRI WIDTH 12.7 % (11.5-15.5)
[2021-07-26 17:20] LABS: BILIRUBIN, TOTAL 0.3 mg/dL (0.0-1.4); CREATININE 1.3 mg/dL (0.5-1.0); POTASSIUM 3.8 mmol/l (3.5-5.1); TOTAL PROTEIN 6.9 g/dL (6.3-8.2)
[2021-07-26 18:43] LABS: URINE BILIRUBIN - DIPSTICK NEGATIVE (NEGATIVE); URINE BLOOD DIPSTICK TRACE-INTACT (NEGATIVE); URINE COLOR YELLOW; URINE GLUCOSE - DIPSTICK NEGATIVE (NEGATIVE); URINE KETONE NEGATIVE (NEGATIVE); URINE LEUK ESTERASE NEGATIVE (NEGATIVE); URINE PROTEIN - DIPSTICK NEGATIVE (NEG-TRACE); URINE UROBILINOGEN - DIPSTICK 0.2 E.U./dL (0.2)
[2021-07-26 18:44] LABS: URINE NITRITE - DIPSTICK NEGATIVE (Negative)
== END 2021-07-26 21:15 | disposition home or self-care (01) ==
LOC: ED 16:05
PROVIDERS: Nurse Practitioner
DX: S80.211A Abrasion, right knee, initial encounter (principal); W18.30XA Fall on same level, unspecified, initial encounter; Y92.099 Unspecified place in other non-institutional residence as the place of occurrence of the external cause; M25.561 Pain in right knee; S09.90XA Unspecified injury of head, initial encounter; E86.0 Dehydration; Z87.440 Personal history of urinary (tract) infections

== ENCOUNTER 2021-11-30 12:50 | Emergency (ER) | payer MEDICARE, OTHER ==
[~2021-11-30] VITALS: Ht 154.9 cm; Wt 100.0 kg
[2021-11-30 14:03] LABS: HEMATOCRIT 33.6 % (37.0-47.0); HEMOGLOBIN 10.7 g/dl (12.0-16.0); IMMATURE GRANULOCYTES 0.3 % (0.0-5.0); MEAN CELL VOLUME 94.1 fL CALC (80.0-100.0); MEAN CORPUSCULAR HGB CONC 31.8 g/dL CAL (32.0-36.0); NEUT# 2.18 thou/uL (2.00-7.15); RED BLOOD COUNT 3.57 mill/uL (4.20-5.60); RED CELL DISTRI WIDTH 12.2 % (11.5-15.5)
[2021-11-30] MEDS ORDERED: ESCITALOPRAM OX10 MG PO (14:10)
[2021-11-30] MEDS ORDERED: FEROSUL325 MG PO (14:10)
[2021-11-30] MEDS ORDERED: MEMANTINE HYDROC5 MG PO (14:12)
[2021-11-30] MEDS ORDERED: ROWEEPRA500 MG PO (14:12)
[2021-11-30] MEDS ORDERED: CARVEDILOL3.125 MG PO (14:13)
[2021-11-30] MEDS ORDERED: LIPITOR20 M1 PO (14:14)
[2021-11-30 14:38] LABS: ALBUMIN 4.1 g/dL (3.2-5.0); ALKALINE PHOSPHATASE 54 u/l (38-126); ANION GAP 14 (6-22 (CALC)); BILIRUBIN, TOTAL 0.2 mg/dL (0.0-1.4); BUN 20 mg/dL (8-23); BUN/CREATININE RATIO 18 (12-20 (CALC)); CARBON DIOXIDE 27 mmol/l (22-30); CHLORIDE 105 mmol/l (95-108); CREATININE 1.1 mg/dL (0.5-1.0); GFR FOR AFR.AMER. 59 ML/MIN (>=60 (CALC)); GFR OTHER RACES 49 ML/MIN (>=60 (CALC)); POTASSIUM 4.2 mmol/l (3.5-5.1); SGOT/AST 33 u/l (9-36); SODIUM 141 mmol/l (137-146); TOTAL PROTEIN 6.7 g/dL (6.3-8.2)
[2021-11-30 15:23] LABS: URINE BILIRUBIN - DIPSTICK NEGATIVE (NEGATIVE); URINE BLOOD DIPSTICK NEGATIVE (NEGATIVE); URINE COLOR YELLOW; URINE GLUCOSE - DIPSTICK NEGATIVE (NEGATIVE); URINE KETONE TRACE mg/dL (NEGATIVE); URINE LEUK ESTERASE NEGATIVE (NEGATIVE); URINE PROTEIN - DIPSTICK NEGATIVE (NEG-TRACE); URINE UROBILINOGEN - DIPSTICK 0.2 E.U./dL (0.2)
[2021-11-30 15:35] LABS: URINE NITRITE - DIPSTICK NEGATIVE (Negative)
[2021-11-30 15:57] VITALS: BP 119/41
== END 2021-11-30 16:09 | disposition home or self-care (01) ==
LOC: ED 12:50
PROVIDERS: Family Medicine
DX: Z04.3 Encounter for examination and observation following other accident (principal); I10 Essential (primary) hypertension; F31.9 Bipolar disorder, unspecified; F03.90 Unspecified dementia, unspecified severity, without behavioral disturbance, psychotic disturbance, mood disturbance, and anxiety

== ENCOUNTER 2023-10-28 18:10 | Inpatient (IN) | payer MEDICARE, MEDICAID ==
[~2023-10-28] VITALS: Ht 154.9 cm; Wt 94.7 kg
[2023-10-28] VITALS (12 sets, daily range): BP systolic 89–156; BP diastolic 46–69
[~2023-10-28 18:10] MED LIST changes: +CARVEDILOL3.125 MG PO; +ESCITALOPRAM OX10 MG PO; +FEROSUL325 MG PO; +LIPITOR20 M1 PO; +MEMANTINE HYDROC5 MG PO; +ROWEEPRA500 MG PO
--- NOTE | 2023-10-28 18:10 | NUR ---
PT BROUGHT IN VIA EMS TO ER ROOM 12, NO DISTRESS NOTED, PROVIDER AT SIDE, VSS
[2023-10-28] MEDS ORDERED: cefTRIAXone SODIUM 2 GM in SODIUM CHLORIDE 0.9% 100 ML IV ONE (18:20)
--- NOTE | 2023-10-28 18:49 | NUR ---
PTS SISTER AT BEDSIDE, VSS, CALL LIGHT WITHIN REACH, PT DENIES ANY NEEDS AT THIS TIME
[2023-10-28 18:52] LABS: BASO% 0.2 % (0-3); HEMATOCRIT 36.8 % (37.0-47.0); HEMOGLOBIN 12.1 g/dl (12.0-16.0); IMMATURE GRANULOCYTES 0.2 % (0.0-5.0); LYMPH% 8.2 % (15-41); MEAN CELL VOLUME 92.5 fL CALC (80.0-100.0); MEAN CORPUSCULAR HGB 30.4 pG CALC (26.0-32.0); MEAN CORPUSCULAR HGB CONC 32.9 g/dL CAL (32.0-36.0); MONO% 7.9 % (2-13); NEUT# 7.16 thou/uL (2.00-7.15); NEUT% 83.5 % (42-76); RED BLOOD COUNT 3.98 mill/uL (4.20-5.60); RED CELL DISTRI WIDTH 13.7 % (11.5-15.5)
--- NOTE | 2023-10-28 19:00 | NUR ---
REPORT RECEIVED FROM LINO KELLER AND CARE RESUMED BY THIS NURSE AT THIS TIME. CALL LIGHT WITHIN REACH AND PT AWAITING RESULTS.
[2023-10-28] MEDS ORDERED: ACETAMINOPHEN 500 MG TAB PO ONE (19:05)
[2023-10-28] MEDS ORDERED: SODIUM CHLORIDE 0.9% 1,000 ML IV ONE (19:05)
[2023-10-28 19:13] LABS: ALBUMIN 4.6 g/dL (3.2-5.0); CREATININE 0.9 mg/dL (0.5-1.0); POTASSIUM 3.8 mmol/l (3.5-5.1); TOTAL PROTEIN 7.8 g/dL (6.3-8.2)
[2023-10-28 19:18] LABS: BILIRUBIN, TOTAL 0.7 mg/dL (0.02-1.3); MAGNESIUM 1.6 mg/dL (1.6-2.3)
[2023-10-28 19:50] LABS: URINE BLOOD DIPSTICK Moderate (NEGATIVE); URINE GLUCOSE - DIPSTICK Negative (NEGATIVE); URINE KETONE Trace mg/dL (NEGATIVE); URINE LEUK ESTERASE Negative (NEGATIVE); URINE NITRITE - DIPSTICK Negative (Negative); URINE PROTEIN - DIPSTICK 100 mg/dL (NEG-TRACE); URINE SPECIFIC GRAVITY 1.025; URINE UROBILINOGEN - DIPSTICK 0.2 E.U./dL (0.2)
[2023-10-28 19:51] LABS: URINE COLOR Yellow
[2023-10-28 19:56] LABS: URINE RBC 0-2 RBC/hpf (0-5); URINE SQUAMOUS EPITHELIAL CELL FEW EPI/hpf (0-FEW)
--- NOTE | 2023-10-28 20:05 | NUR ---
PT SITTING IN RM AWAITING RESULTS AT THIS TIME. CALL LIGHT WITHIN REACH AND PT HAS NO NEEDS OR CONCERNS AT THIS TIME.
[2023-10-28] MEDS ORDERED: Zaleplon 5 MG/CAP PO PRN (20:55)
[2023-10-28] MEDS ORDERED: MAGNESIUM HYDROXIDE 30 ML UDC PO PRN (20:55)
[2023-10-28] MEDS ORDERED: ACETAMINOPHEN 325 MG/TAB PO PRN (20:55)
[2023-10-28] MEDS ORDERED: ENOXAPARIN SODIUM 40 MG/0.4 ML SYR SC SCH (21:00)
--- NOTE | 2023-10-28 21:18 | NUR ---
PT SITTING IN RM WAITING ADMISSION AT THIS TIME. CALL LIGHT WITHIN REACH AND PT HAS NO NEEDS OR CONCERNS AT THIS TIME.
[2023-10-28] MEDS ORDERED: TYLENOL500 MG PO (21:25)
[2023-10-28] MEDS ORDERED: FUROSEMIDE20 MG PO (21:26)
[2023-10-28] MEDS ORDERED: OLANZAPINE5 MG PO (21:27)
[2023-10-28] MEDS ORDERED: LEVOTHYROXINE137 MC1 PO (21:30)
[2023-10-28] MEDS ORDERED: SYNTHROID300 MCG PO (21:31)
--- NOTE | 2023-10-28 22:37 | NUR ---
REPORT GIVEN TO LINDA MCELROY AND PT TO BE TRANSPORTED TO MED SURG RM 267. CALL LIGHT WITHIN REACH WITH FAMILY AT BEDSIDE.
--- NOTE | 2023-10-28 22:57 | NUR ---
Admission Note Report Given to: LINDA MCELROY Transported by: Wheelchair X Stretcher Transported with: X Nurse Transporter X Patent IV O2 Blasting Helper Location: ICU X MS2
--- NOTE | 2023-10-28 23:45 | NUR ---
REPORT RECIEVED FROM ED NURSE ANIKA MCKEON. PT TRANSPORTED TO [facility] ROOM 267 WITH ED STAFF X1 VIA STRETCHER @ [id number]. NEXT OF KIN AT BEDSIDE. THIS EQUIPMENT SPECIALIST AND OTHER NURSE X1 ASSISTED PT OUT OF BED TO STANDING SCALE WITH WALKER. PT AMBULATES WITH A SHUFFLING GAIT. PT ASSISTED TO BSC AT THIS TIME. PT ASSISTED TO BED, ADMISSION AND ASSESSMENT COMPLETED WITH THE NEXT OF KIN ASSISTANCE ON ADMISSION DUE TO PT PSYCHOLOGICAL HX. NO COMPLAINTS VOICED AT THIS TIME. PT IS ON ROOM AIR. VSS. IV SITE CLEAN AND INTACT, FLUSHING WELL. LUNG SOUNDS CLEAR UPON AUSCULTATION. JATINDER HOSE APPLIED, THEN REMOVED, PT STATES THAT THEY HURT. BOWEL SOUNDS ACTIVE X4 QUADRANTS. PT STATES THAT HER LAST BM WAS ON 10-27-23. PT IS A&O X2. TRACE EDEMA NOTED TO BILATERAL FEET. (L) LOWER EXTREMITY WARM UPON PALPATION, AND REDNESS NOTED, PICTURE OBTAINED, SEE CHART. NO S&S OF DISTRESS NOTED. BED ALARM ON AT THIS TIME. PT AND FAMILY EDUCATED ON POC AND MEDICATION SCHEDULE. CALL LIGHT IN REACH, AND SAFETY PRECAUTIONS IN PLACE. PT ORIENTED TO CALL LIGHT, SURROUNDINGS, TV REMOTE.
[2023-10-29 04:05] VITALS: BP 117/53
--- NOTE | 2023-10-29 04:10 | NUR ---
PT RESTING IN BED WITH EYES CLOSED. RESPIRATIONS ARE EVEN AND UNLABORED. PT IS EASILY [place]. NO S&S OF DISTRESS NOTED. PT REMAINS ON ROOM AIR. NO COMPLAINTS VOICED AT THIS TIME. CALL LIGHT IN REACH, AND SAFETY PRECAUTIONS IN PLACE.
[2023-10-29 05:43] LABS: BASO% 0.3 % (0-3); IMMATURE GRANULOCYTES 0.2 % (0.0-5.0); LYMPH% 13.2 % (15-41); MEAN CELL VOLUME 93.2 fL CALC (80.0-100.0); MEAN CORPUSCULAR HGB 30.9 pG CALC (26.0-32.0); MEAN CORPUSCULAR HGB CONC 33.1 g/dL CAL (32.0-36.0); MONO% 12.2 % (2-13); NEUT# 4.68 thou/uL (2.00-7.15); NEUT% 74.1 % (42-76); RED BLOOD COUNT 3.24 mill/uL (4.20-5.60); RED CELL DISTRI WIDTH 13.9 % (11.5-15.5)
[2023-10-29 05:46] LABS: HEMATOCRIT 30.2 % (37.0-47.0)
[2023-10-29 05:54] LABS: CREATININE 0.8 mg/dL (0.5-1.0); POTASSIUM 3.5 mmol/l (3.5-5.1)
[2023-10-29 06:02] LABS: ALBUMIN 3.4 g/dL (3.2-5.0); BILIRUBIN, TOTAL 0.4 mg/dL (0.02-1.3); TOTAL PROTEIN 5.9 g/dL (6.3-8.2)
[2023-10-29 06:25] VITALS: BP 109/74
--- NOTE | 2023-10-29 08:00 | NUR ---
PATIENT SITTING UP IN BED. ASSESSMENT COMPLETED (SEE INTERVENTIONS). PATIENT ALERT AND ORIENTED X 2. DENIES PAIN AT THIS TIME. LUNGS CLEAR TO ASULTATION. BREATHING EVEN AND UNLABORED ON ROOM AIR. BLE EDEMA NOTED WITH WARM AND REDNESS NOTED ON LLE. DENIES ANY PAIN IN THE AREA. SAFETY MEASURES IN PLACE INCLUDING BED IN LOW POSITION AND CALL LIGHT RESTING IN R HAND. NO APPARENT DISTRESS NOTED. WILL CONTINUE WITH PLAN OF CARE.
[2023-10-29] MEDS ORDERED: LevETIRAcetam 500 MG/TAB PO SCH (09:00)
[2023-10-29] MEDS ORDERED: ESCITALOPRAM 10 MG/TAB PO SCH (09:00)
[2023-10-29] MEDS ORDERED: CARVEDILOL 3.125 MG/TAB PO SCH (09:00)
[2023-10-29] MEDS ORDERED: MEMANTINE Hydrochloride 10 MG/TAB PO SCH (09:00)
[2023-10-29] MEDS ORDERED: VALPROIC ACID 250 MG/CAP PO SCH (09:00)
[2023-10-29] MEDS ORDERED: FUROSEMIDE 40 MG/4 ML SDV IV SCH (09:00)
[2023-10-29] MEDS ORDERED: VANCOMYCIN HCL 1,250 MG in SODIUM CHLORIDE 0.9% 225 ML IV SCH (11:00)
--- NOTE | 2023-10-29 12:21 | NUR ---
PATIENT REPOSITIONED SUPINE REQUESTED. PATIENT SISTER AT BEDSIDE. NO APPARENT DISTRESS NOTED. WILL CONTINUE WITH PLAN OF CARE.
[2023-10-29] MEDS ORDERED: DiphenhydrAMINE HCL 25 MG CPLT PO PRN (12:45)
[2023-10-29] MEDS ORDERED: PATIENT' OWN MED 1 EA DOSE PO PRN (13:55)
[2023-10-29 15:30] VITALS: BP 121/44
--- NOTE | 2023-10-29 16:00 | NUR ---
PATIENT SITTING IN HIGH FOWL. PATIENT DENIES ANY CONCERNS AT THIS. NO APPARENT DISTRESS NOTED. WILL CONTINUE WITH PLAN OF CARE.
--- NOTE | 2023-10-29 16:26 | NUR ---
S: SUSANA VALLEJO is a 73 F who presents with cellulitis of LLE. O: VS: BP 121/44 mmHg, P 79 bpm, RR 20 bpm,T 102.7 F W 95.4 kg, HT 61 in, Scr= 0.8 mg/dL ,CrCl= 65.6 ml/min A: Blood culture is pending Urine culture is pending P: Patient is on ceftriaxone 1gm iv q24h. Vancomycin ordered for pharmacy to dose. Start Vancomycin 1250mg IV Q24H. Vancomycin trough is drawn before the dose on 11/01/23 @1030. Vancomycin goal trough is between 10-15 mcg/ml. Pharmacy will follow and or advise on antibiotics use as needed.
[2023-10-29 18:27] VITALS: BP 107/49
[2023-10-29 19:20] VITALS: BP 107/49
[2023-10-29] MEDS ORDERED: ACETAMINOPHEN 325 MG/TAB PO PRN (20:00)
--- NOTE | 2023-10-29 20:10 | NUR ---
REPORT RECEIVED FROM [facility] NURSE. TREE HUYNH. PT RESTING IN BED WATCHING TELEVISION. PT APPEARS COMFORTABLE. PT IS A&OX2, AND ABLE TO MAKE NEEDS KNOWN. PT DENIES ANY PAIN. TEMPERATURE AT THIS TIME WNL. NO COMPLAINTS VOICED. NO S&S OF DISTRESS. PUREWICK IN PLACE, KERRY CLEAR URINE NOTED IN CANISTER. PT IS ON ROOM AIR. BOWEL SOUNDS ACTIVE X4 QUADRANTS. TRACE EDEMA NOTED TO BILATERAL FEET, PEDAL PULSES WEAK. JATINDER HOSE REFUSED. REDNESS AND WARMTH TO (L) LOWER EXTREMITY. LUNG SOUNDS CLEAR UPON AUSCULTATION. SKIN INTACT. IV SITE CLEAN AND INTACT, FLUSHING WELL. PT EDUCATED ON POC AND MEDICATION SCHEUDLE. CALL LIGHT IN REACH, AND SAFETY PRECAUTIONS IN PLACE.
[2023-10-29] MEDS ORDERED: ATORVASTATIN CALCIUM 20 MG/TAB PO SCH (21:00)
[2023-10-29] MEDS ORDERED: OLANZapine 5 MG/TAB PO SCH (21:00)
[2023-10-30] VITALS (7 sets, daily range): BP systolic 95–141; BP diastolic 47–75
--- NOTE | 2023-10-30 00:05 | NUR ---
PT RESTING IN BED WITH EYES CLOSED. RESPIRATIONS ARE EVEN AND UNLABORED. PT IS EASILY AROUSABLE. NO S&S OF DISTRESS NOTED. NO COMPLAINTS VOICED AT THIS TIME. PT REMAINS ON ROOM AIR. CALL LIGHT IN REACH, AND SAFETY PRECAUTIONS IN PLACE.
--- NOTE | 2023-10-30 04:10 | NUR ---
PT RESTING IN BED WITH EYES CLOSED. RESPIRATIONS ARE EVEN AND UNLABORED. PT IS EASILY AROUSABLE. NO COMPLAINTS OFFERED AT THIS TIME. NO S&S OF DISTRESS NOTED. PT APPEARS COMFORTABLE. CALL LIGHT IN REACH, AND SAFETY PRECAUTIONS IN PLACE.
[2023-10-30 04:54] LABS: BASO% 0.4 % (0-3); EOS% 0.9 % (0-8); HEMATOCRIT 30.5 % (37.0-47.0); HEMOGLOBIN 9.8 g/dl (12.0-16.0); IMMATURE GRANULOCYTES 0.2 % (0.0-5.0); LYMPH% 32.7 % (15-41); MEAN CELL VOLUME 94.4 fL CALC (80.0-100.0); MEAN CORPUSCULAR HGB 30.3 pG CALC (26.0-32.0); MEAN CORPUSCULAR HGB CONC 32.1 g/dL CAL (32.0-36.0); NEUT# 2.3 thou/uL (2.00-7.15); NEUT% 49.8 % (42-76); RED BLOOD COUNT 3.23 mill/uL (4.20-5.60); RED CELL DISTRI WIDTH 13.9 % (11.5-15.5)
[2023-10-30 05:11] LABS: ALBUMIN 3.3 g/dL (3.2-5.0); BILIRUBIN, TOTAL 0.4 mg/dL (0.02-1.3); CHOLESTEROL HDL RATIO 2.6 (<4.4 (CALC)); CREATININE 0.8 mg/dL (0.5-1.0); MAGNESIUM 1.9 mg/dL (1.6-2.3); POTASSIUM 3.6 mmol/l (3.5-5.1); TOTAL PROTEIN 5.9 g/dL (6.3-8.2)
[2023-10-30] MEDS ORDERED: LEVOTHYROXINE SODIUM 25 MCG/TAB PO SCH (06:00)
[2023-10-30] MEDS ORDERED: LEVOTHYROXINE SODIUM 112 MCG/TAB PO SCH (06:00)
--- NOTE | 2023-10-30 07:30 | NUR ---
Report received from weight shifter nurse. Patient is sleeping, does not appear to be in any distress. On room air, VS WNL, purwick in place. All needs addressed, call light within.
--- NOTE | 2023-10-30 07:47 | NUR ---
Preliminary blood culture results growing gram positive cocci in 1 of 4 bottles reported to Lacey Trimble APRN. No new orders at this time.
--- NOTE | 2023-10-30 11:00 | NUR ---
Tele health neuro consult done.
--- NOTE | 2023-10-30 12:00 | NUR ---
Patient is sitting in chair, denies any pain. Family at bedside. Patient is A&O to self, place, situation. On room air, VS WNL, NSR on tele monitor, purwick in place. All needs addressed, calll light within reach.
--- NOTE | 2023-10-30 13:45 | NUR ---
Patient is c/o abdominal pain. No s/s of bleeding while using restroom. Dr miller.
--- NOTE | 2023-10-30 16:00 | NUR ---
Patient is sitting in chair, denies any pain. Patient is A&O to self, place, situation. On room air, VS WNL, NSR on tele monitor, purwick in place. All needs addressed, calll light within reach.
--- NOTE | 2023-10-30 20:00 | NUR ---
ASSESSMENT COMPLETE. PT ALERT TO PLACE AND SELF. PT HAS NO COMPLAINTS. NO FEVER NOTED. PW IN PLACE. V/S STABLE. CALL LIGHT IN REACH
[2023-10-30] MEDS ORDERED: DiphenhydrAMINE HCL 25 MG CPLT PO SCH (21:00)
--- NOTE | 2023-10-31 | NUR ---
PT RESTING COMFORTABLY, HAS NO COMPLAINTS. V/S STABLE. CALL LIGHT IN [facility]
[2023-10-31 03:43] VITALS: BP 143/68
[2023-10-31 04:02] VITALS: BP 143/68
[2023-10-31 05:06] LABS: BASO% 1.3 % (0-3); EOS% 5.1 % (0-8); HEMATOCRIT 33.1 % (37.0-47.0); HEMOGLOBIN 10.8 g/dl (12.0-16.0); IMMATURE GRANULOCYTES 0.5 % (0.0-5.0); LYMPH% 39.6 % (15-41); MEAN CELL VOLUME 93.8 fL CALC (80.0-100.0); MEAN CORPUSCULAR HGB 30.6 pG CALC (26.0-32.0); MEAN CORPUSCULAR HGB CONC 32.6 g/dL CAL (32.0-36.0); MONO% 12.8 % (2-13); NEUT# 1.53 thou/uL (2.00-7.15); NEUT% 40.7 % (42-76); RED BLOOD COUNT 3.53 mill/uL (4.20-5.60); RED CELL DISTRI WIDTH 13.7 % (11.5-15.5)
[2023-10-31 05:30] LABS: ALBUMIN 3.4 g/dL (3.2-5.0); BILIRUBIN, TOTAL 0.3 mg/dL (0.02-1.3); CREATININE 0.8 mg/dL (0.5-1.0); MAGNESIUM 2.1 mg/dL (1.6-2.3); POTASSIUM 3.9 mmol/l (3.5-5.1); TOTAL PROTEIN 6.1 g/dL (6.3-8.2)
[2023-10-31] MEDS ORDERED: BACTRIM DS1 TAB PO (05:48)
[2023-10-31 07:22] VITALS: BP 136/55
--- NOTE | 2023-10-31 07:42 | NUR ---
SHIFT CHANGE REPORT, PT PLESANTLY AWAKE AND ALERT, C/O REDNESS TO LEFT LEG AND STATES IT HURTS A LITTLE BUT WAS UNABLE TO RATE PAIN ON SCALE, NO OTHER COMPLAINS AT THIS TIME, PUREWICK CATHETER IN PLACE, CALL ORTIZ IN REACH AND BED LOCKED IN LOWEST POSITION WITH ALARM ACTIVATED.
[2023-10-31 07:57] VITALS: BP 136/55
--- NOTE | 2023-10-31 08:26 | NUR ---
BOOKED AN INFECTIOUS DISEASE CONSULT WITH DR HARTLEY VIA THE [facility] AT 0826 HRS.
--- NOTE | 2023-10-31 11:48 | NUR ---
AMBULATED AND ASSISTED TO RECLINER WITH PHYSICAL THERAPIST AT THIS TIME, CALL ANGEL IN REACH.
--- NOTE | 2023-10-31 12:39 | NUR ---
INFECTIOUS DISEASE CONSULTED VIRTUALLY AND DISCUSSED PLAN OF CARE.
--- NOTE | 2023-10-31 13:25 | NUR ---
SITTING UP IN RECLINER, ALL NEEDS ADDRESSED, SISTER VISITING.
--- NOTE | 2023-10-31 13:46 | NUR ---
BEING TRANSPORTED OFF UNIT AT THIS TIME VIA W/C TO [facility] PROCEDURE.
[2023-10-31] MEDS ORDERED: cefTRIAXone SODIUM 2 GM in SODIUM CHLORIDE 0.9% 100 ML IV SCH (14:00)
--- NOTE | 2023-10-31 14:15 | NUR ---
RETURNED TO UNIT AND TRANSFERRED TO RECLINER AT THIS TIME.
[2023-10-31 16:11] VITALS: BP 126/53
--- NOTE | 2023-10-31 16:58 | NUR ---
SITTING UP IN RECLINER, ASSISTED TO BSC THEN SETTLED BACK IN RECLINER, CALL ORTIZ IN REACH.
--- NOTE | 2023-10-31 19:58 | NUR ---
BEDSIDE REPORT RECEIVED FROM OFF GOING NURSE. PATIENT AWAKE IN BED. PATIENT LEFT LEG ELEVATED ON PILLOW R/T SWELLING. REDNESS NOTED TO LLE. PATIENT DENIES PAIN OR DISCOMFORT. RESPIRATIONS EVEN AND UNLABORED ON ROOM AIR. SAFETY MEASURES IN PLACE. CALL LIGHT WITHIN REACH.
[2023-10-31 20:45] VITALS: BP 128/41
[2023-11-01 03:33] VITALS: BP 133/52
[2023-11-01 05:26] LABS: BASO% 0.7 % (0-3); EOS% 5.1 % (0-8); HEMATOCRIT 34.4 % (37.0-47.0); HEMOGLOBIN 10.8 g/dl (12.0-16.0); LYMPH% 37.1 % (15-41); MEAN CELL VOLUME 97.2 fL CALC (80.0-100.0); MEAN CORPUSCULAR HGB 30.5 pG CALC (26.0-32.0); MEAN CORPUSCULAR HGB CONC 31.4 g/dL CAL (32.0-36.0); MONO% 12.4 % (2-13); NEUT# 1.8 thou/uL (2.00-7.15); NEUT% 43.7 % (42-76); RED BLOOD COUNT 3.54 mill/uL (4.20-5.60); RED CELL DISTRI WIDTH 13.5 % (11.5-15.5)
[2023-11-01 05:41] LABS: ALBUMIN 3.4 g/dL (3.2-5.0); BILIRUBIN, TOTAL 0.2 mg/dL (0.02-1.3); CREATININE 0.7 mg/dL (0.5-1.0); MAGNESIUM 2.1 mg/dL (1.6-2.3); POTASSIUM 4.1 mmol/l (3.5-5.1); TOTAL PROTEIN 6.2 g/dL (6.3-8.2)
--- NOTE | 2023-11-01 08:00 | NUR ---
REPORT RECEIVED FROM NIGHT NURSE. PATIENT AXO X4. S1S2 NOTED, SINUS RHYTHM ON TELE. LUNGS CLEAR THROUGHOUT, NO COUGH OR SOB NOTED, ON ROOM AIR. ABDOMEN SOFT, NON DISTENDED, NON TENDER, WITH ACTIVE KRISTA SOUNDS. PULSES STRONG IN ALL EXTREMITIES. SKIN WDI. LEFT LOWER LEG RED AND WARM, ELEVATED ON PILLOW. ALL NEEDS MET. CALL LIGHT IN REACH. VSS.
[2023-11-01 08:56] VITALS: BP 121/79
[2023-11-01] MEDS ORDERED: cefTRIAXone SODIUM 2 GM in SODIUM CHLORIDE 0.9% 100 ML IV SCH (11:00)
--- NOTE | 2023-11-01 12:00 | NUR ---
PATIENT SITTING UP IN RECLINER. FAMILY AT BEDSIDE. ALL NEEDS MET. CALL LIGHT IN REACH. VSS.
[2023-11-01 15:56] VITALS: BP 117/71
--- NOTE | 2023-11-01 16:00 | NUR ---
PATIENT SITTING UP IN RECLINER WATCHING TV. DENIES NEEDS AT THIS TIME. CALL LIGHT IN REACH. VSS.
[2023-11-01 18:33] VITALS: BP 130/55
[2023-11-01 18:57] VITALS: BP 134/70
--- NOTE | 2023-11-01 20:00 | NUR ---
PATIENT SITTING UP IN BED-AWAKE ALERT AND ORIENTED. PATIENT WITH NO COMPLAINTS AT THIS TIME. SIDERAILS ARE PADDED FOR SEIZURE PRECAUTIONS. PUREWICK IN PLACE FOR URINE INCONT DRAINING YELLOW URINE. LLE CELLULITIS-BLE ARE ELEVATED ON PILLOWS AND LEFT LEGS IS RED SWOLLEN AND TENDER TO TOUCH. SAFETY PRECAUTIONS REINFORCED. CALL LIGHT IN REACH. WILL CONT TO MONITOR.
--- NOTE | 2023-11-02 | NUR ---
RESTING IN BED WITH HOB SLIGHTLY ELEVATED AND EYES CLOSED. RESPS ARE EVEN AND UNLABORED. PUREWICK IN PLACE AND DRAINING YELLOW URINE. SALINE LOCK TO RIGHT WRIST INTACT. PATIENT WITH BLE ELEVATED ON PILLOWS. CALL LIGHT IN REACH. WILL CONT TO MONITOR.
--- NOTE | 2023-11-02 00:43 | NUR ---
PATIENT RESTING IN BED AT THIS TIME WITH HOB ELEVATED. EYES ARE CLOSED ANBD RESPS ARE EVEN AND UNLABORED. PUREWICK IN PLACE. SALINE LOCK TO RIGHT WRIST INTACT. CALL LIGHT IN REACH. WILL CONT TO MONITOR.
[2023-11-02 04:04] VITALS: BP 141/79
--- NOTE | 2023-11-02 04:30 | NUR ---
PATIENT RESTING IN BED WITH HOB SLIGHTLY ELEVATED. EYES ARE CLOSED AND RESPS ARE EVEN AND UNLABORED. BLE ARE ELEVATED ON PILLOWS. PUREWICK IN PLACE AND DRAINING YELLOW URINE. SALINE LOCK TO RIGHT WRIST. CALL LIGHT IN REACH. WILL CONT TO MONITOR.
--- NOTE | 2023-11-02 07:05 | NUR ---
REPORT RECEIVED FROM LINO RODRIGUEZ
[2023-11-02 07:21] VITALS: BP 118/53
--- NOTE | 2023-11-02 09:10 | NUR ---
PT RESTING IN SEMI FOWLERS POSITION;ASSESSMENT COMPLETED;PT DENIES ANY CURRENT PAIN OR DISCOMFORTS,PAIN SCALE AND REPORTING EDUCATED;RESPIRATIONS EVEN AND UNLABORED ON RA,CLEAR LUNG SOUNDS;ABDOMEN SOFT ON PALPATION AND ACTIVE IN ALL 4 QUADRANTS;PUREWICK CATHETER DRAINING WITH EASE;STRONG PEDAL PULSES;SKIN INTACT;#22G TO RW FLUSHED AND PATENT,SITE APPEARS HEALTHY;SEIZURE PRECAUTIONS IN PLACE D/T HX;PT DENIES ANY ADDITIONAL NEEDS;ENCOURAGED TO CALL FOR ASSISTANCE IF NEEDED;FALL PRECAUTIONS IN PLACE WITH BED IN THE LOWEST POSITION AND CALL LIGHT IN REACH;FREQUENT ROUNDS MADE.
--- NOTE | 2023-11-02 10:56 | NUR ---
AT BEDSIDE DISCUSSING POC WITH PT.
--- NOTE | 2023-11-02 11:35 | NUR ---
PT RESTING IN SEMI FOWLERS POSITION EATING LUNCH;RESPIRATIONS REMAIN EVEN AND UNLABORED ON RA;PT DENIES ANY CURRENT PAIN OR DISCOMFORTS;IV SITE TO RH PATENT AND ABX STARTED AT THIS TIME PER ORDER;PUREWICK CATHETER DRAINING WITH EASE;PT ENCOURAGED TO CALL FOR ASSISTANCE IF NEEDED;CALL LIGHT IN REACH;FREQUENT ROUNDS MADE.
[2023-11-02 15:44] VITALS: BP 119/58
--- NOTE | 2023-11-02 16:30 | NUR ---
PT OOB RESTING IN RECLINER WATCHING TV;RESPIRATIONS EVEN AND UNLABORED ON RA;PT DENIES ANY CURRENT PAIN OR NEEDS; PUREWICK DRAINING WITH EASE;IV SITE TO RH PATENT;ENCOURAGED TO CALL FOR ASSISTANCE IF NEEDED.
[2023-11-02 18:25] VITALS: BP 130/66
[2023-11-02 19:02] VITALS: BP 130/66
--- NOTE | 2023-11-02 19:10 | NUR ---
PATIENT OBSERVED RESTING IN RECLINER. ALERT AND ABLE TO MAKE NEEDS KNOWN. ASSESSMENT COMPLETE. NO DISTRESS NOTED. NO COMPLAINTS OF PAIN. SLIGHT REDNESS TO LEFT LOWER LEG. NO WARMTH TO IT. DENIES NEEDING ANYTHING AT THIS TIME. CALL ORTIZ AND BELONGINGS IN REACH.
[2023-11-02 21:27] VITALS: BP 120/62
[2023-11-03] VITALS (7 sets, daily range): BP systolic 106–143; BP diastolic 32–72
--- NOTE | 2023-11-03 00:30 | NUR ---
PATIENT REMAINS RESTING IN BED WITH HOB ELEVATED. NO DISTRESS NOTED. NO COMPLAINTS OF PAIN. DENIES NEEDING ANYTHING AT THIS TIME. BED REMAINS IN LOW POSITION. CALL ORTIZ IN REACH.
--- NOTE | 2023-11-03 03:47 | NUR ---
PATIENT REMAINS RESTING IN BED WITH HOB ELEVATED. DENIES NEEDING ANYTHING AT THIS TIME. BED REMAINS IN LOW POSITION. CALL ORTIZ IN REACH.
[2023-11-03 05:06] LABS: BASO% 0.6 % (0-3); EOS% 2.8 % (0-8); HEMATOCRIT 33.6 % (37.0-47.0); HEMOGLOBIN 10.9 g/dl (12.0-16.0); LYMPH% 39.9 % (15-41); MEAN CELL VOLUME 95.2 fL CALC (80.0-100.0); MEAN CORPUSCULAR HGB 30.9 pG CALC (26.0-32.0); MEAN CORPUSCULAR HGB CONC 32.4 g/dL CAL (32.0-36.0); NEUT# 2.38 thou/uL (2.00-7.15); NEUT% 43.7 % (42-76); RED BLOOD COUNT 3.53 mill/uL (4.20-5.60); RED CELL DISTRI WIDTH 13.3 % (11.5-15.5)
[2023-11-03 05:08] LABS: CREATININE 0.8 mg/dL (0.5-1.0); POTASSIUM 4.2 mmol/l (3.5-5.1)
--- NOTE | 2023-11-03 09:42 | NUR ---
AWAKE ALERT AND ORIENTED NOW
--- NOTE | 2023-11-03 20:00 | NUR ---
RECEIVED REPORT FROM DAYSHIFT NURSE. PT NOTED LAYING IN BED FOWLERS, ON RM AIR. PT IS A/OX3 HOWEVER MENTAL DEFICITS ARE APPARENT. PUREWICK NOTED WITH CLEAR YELLOW URINE OUTPUT. IV SITE APPEARS HEALTHY AND INTACT. PT HAS REDNESS AND MINOR SWELLING TO POTERIOR REGION ON LT LEG. PT DENIES ANY TENDERNESS OR PAIN, NO OPEN AREAS NOTED. NOT WARM TO TOUCH. PILLOW UNDER LT LEEG TO ELEVATE. NURSING ASSESSMENT COMPLETED. EDUCATED PT ON MED SCHEDULE AND PLAN OF CARE. VSS. NO S/S OF DISTRESS. CALL LIGHT WITHIN REACH AND SAFETY PRECAUTIONS IN PLACE.
--- NOTE | 2023-11-04 | NUR ---
PT NOTED LAYING IN BED SEMI FOWLERS, RESTING COMFORTABLY WITH EYES CLOSED. NO S/S OF DISTRESS. CALL LIGHT WITHIN REACH AND SAFETY PRECAUTIONS IN PLACE.
[2023-11-04 02:51] VITALS: BP 153/55
[2023-11-04 03:37] VITALS: BP 153/55
--- NOTE | 2023-11-04 04:00 | NUR ---
CONSOLIDATION ACCOUNTANT ASSISTED WITH REPOSITIONING PT IN BED. PT REQUESTED TO HAVE PILLOWS REMOVED UNDER LEFT LEG. DENIES AND N/V/P AT THIS TIME. VSS. NO S/S OF DISTRESS. CALL LIGHT WWITHIN REACH AND SAFETY PRECAUTIONS IN PLACE.
[2023-11-04 04:48] LABS: BASO% 1.1 % (0-3); EOS% 4.3 % (0-8); HEMATOCRIT 32.5 % (37.0-47.0); HEMOGLOBIN 10.4 g/dl (12.0-16.0); IMMATURE GRANULOCYTES 2.4 % (0.0-5.0); LYMPH% 38.3 % (15-41); MEAN CELL VOLUME 94.8 fL CALC (80.0-100.0); MEAN CORPUSCULAR HGB 30.3 pG CALC (26.0-32.0); MONO% 12.1 % (2-13); NEUT# 2.31 thou/uL (2.00-7.15); NEUT% 41.8 % (42-76); RED BLOOD COUNT 3.43 mill/uL (4.20-5.60); RED CELL DISTRI WIDTH 13.2 % (11.5-15.5)
[2023-11-04 05:03] LABS: CREATININE 0.9 mg/dL (0.5-1.0); POTASSIUM 4.7 mmol/l (3.5-5.1)
[2023-11-04] MEDS ORDERED: CEFTRIAXONE2 GM IJ ×2 (06:08→06:10)
[2023-11-04 07:10] VITALS: BP 117/55
--- NOTE | 2023-11-04 07:30 | NUR ---
Report received from cage shift manager nurse. Patient is sleeping, does not appear to be in any distress. On room air, VS WNL, purwick in place. Plan for patient to get PICC line for outpatient antibiotics. All needs addressed, call light within reach.
[2023-11-04 08:27] VITALS: BP 117/55
--- NOTE | 2023-11-04 09:25 | NUR ---
Patient went down for PICC line insertion.
--- NOTE | 2023-11-04 11:45 | NUR ---
Discharge instructions given. Patient and patients sister at bedside who is also the POA. Both verbalize understanding of instructions. Discharged in stable condition [facility]. Patient left unit via wheelchair with staff. IV removed, PICC line in place. All belongings sent with pt.
--- NOTE | 2023-11-04 11:45 | NUR ---
Report given [facility] nursePalmira at [facility].
== END 2023-11-04 11:27 | DRG 872 ==
LOC: ED 18:10 → ED-I 20:15 → MS2 20:42 → ED 20:42 → MS2 20:42
PROVIDERS: Family Medicine; Nurse Practitioner Family; Student in an Organized Health Care Education/Training Program; ADMIT Internal Medicine; ATTEND Internal Medicine
PROC: 02HV33Z Insertion of Infusion Device into Superior Vena Cava, Percutaneous Approach (ICD-10-PCS; principal; 2023-11-04)
PROC: B518ZZA Fluoroscopy of Superior Vena Cava, Guidance (ICD-10-PCS; 2023-11-04)
DX: A40.1 Sepsis due to streptococcus, group B (principal); L03.116 Cellulitis of left lower limb; G21.11 Neuroleptic induced parkinsonism; G25.2 Other specified forms of tremor; T43.505A Adverse effect of unspecified antipsychotics and neuroleptics, initial encounter; I10 Essential (primary) hypertension; F31.9 Bipolar disorder, unspecified; F03.90 Unspecified dementia, unspecified severity, without behavioral disturbance, psychotic disturbance, mood disturbance, and anxiety; G93.89 Other specified disorders of brain; E03.9 Hypothyroidism, unspecified; E78.5 Hyperlipidemia, unspecified; I08.1 Rheumatic disorders of both mitral and tricuspid valves; F20.9 Schizophrenia, unspecified; G40.909 Epilepsy, unspecified, not intractable, without status epilepticus; F79 Unspecified intellectual disabilities; E66.9 Obesity, unspecified; Z68.39 Body mass index [BMI] 39.0-39.9, adult; Z88.0 Allergy status to penicillin; Z86.011 Personal history of benign neoplasm of the brain; Z20.822 Contact with and (suspected) exposure to COVID-19
CPT/HCPCS: J1650; J3370